=== PATIENT | female | born 1985 ===

== ENCOUNTER 2022-07-05 13:37 | Outpatient (CLI) | payer OTHER | END 2022-07-05 13:44 | disposition home or self-care (01) | LOC: SONOGRAMA 13:37 | PROVIDERS: ATTEND Obstetrics & Gynecology | DX: O92.6 Galactorrhea (principal) ==

== ENCOUNTER 2023-06-27 10:21 | Outpatient (CLI) | payer OTHER | END 2023-06-27 10:49 | disposition home or self-care (01) | LOC: SONOGRAMA 10:21 | PROVIDERS: ATTEND Obstetrics & Gynecology | DX: N60.01 Solitary cyst of right breast (principal); N60.02 Solitary cyst of left breast ==